=== PATIENT | male | born 1980 | race Caucasian/White ===

== ENCOUNTER → 2018-07-27 | Outpatient (CLI) | payer OTHER | LOC: M ADAMS 15:48 | DX: M25.572 Pain in left ankle and joints of left foot (principal) ==

== ENCOUNTER → 2019-09-23 | Outpatient (REF) | payer OTHER ==
[2019-09-23 19:58] LABS: ALBUMIN 4.2 GM/DL (3.2-5.2)
== END ==
LOC: M LABDRWAD 10:42
PROVIDERS: ATTEND Physician Assistant Medical
DX: R94.5 Abnormal results of liver function studies (principal)